=== PATIENT | male | born 1955 | race Caucasian/White ===

== ENCOUNTER → 2017-04-18 | Outpatient (CLI) | payer BC | END | disposition home or self-care (01) | LOC: GMAM 15:14 | PROVIDERS: ATTEND Family Medicine | DX: R94.5 Abnormal results of liver function studies (principal); Z12.5 Encounter for screening for malignant neoplasm of prostate; E29.9 Testicular dysfunction, unspecified ==

== ENCOUNTER → 2018-05-22 | Outpatient (CLI) | payer BC | LOC: GMAM 11:11 | PROVIDERS: ATTEND Family Medicine | DX: R94.6 Abnormal results of thyroid function studies (principal); E29.9 Testicular dysfunction, unspecified; Z12.5 Encounter for screening for malignant neoplasm of prostate ==

== ENCOUNTER → 2018-05-23 | Outpatient (CLI) | payer BC | LOC: LAB.O 11:49 | PROVIDERS: ATTEND Family Medicine | DX: L08.9 Local infection of the skin and subcutaneous tissue, unspecified (principal) ==

== ENCOUNTER → 2018-09-08 | Outpatient (CLI) | payer BC, OTHER ==
--- NOTE | 2018-09-08 10:39 | RAD ---
Single frontal view pelvis Indication: R10.2 Comparison: None. Impression: Likely subacute fractures involving the right parasymphyseal pubic bone and right inferior pubic ramus noted with mild callus formation inferiorly. The fractures appear united. A right pubic root fracture is likely present as well. CT can better evaluate as clinically indicated. Lumbosacral fusion construct noted with suspected loosening of the bilateral S1 screws and left L5 screw with surrounding lucency. Mild to moderate bilateral hip osteoarthritis. Osteopenia. If this is a new finding, DEXA scan recommended as well as evaluation for possible osteoporosis treatment. Electronically signed by: Carmelo Hernandez MD 09/08/2018 10:36 AM CDT
== END ==
LOC: RAD 08:07
PROVIDERS: ATTEND Orthopaedic Surgery
DX: R10.2 Pelvic and perineal pain (principal); M85.88 Other specified disorders of bone density and structure, other site; M16.0 Bilateral primary osteoarthritis of hip; Z98.1 Arthrodesis status

== ENCOUNTER → 2018-10-02 | Outpatient (CLI) | payer BC ==
--- NOTE | 2018-10-02 19:47 | US ---
US THYROID CLINICAL STATEMENT: THYROID NODULE. No palpable mass, no prior thyroid surgery or therapy. COMPARISON: None TECHNIQUE: Transcutaneous scanning, grayscale and Doppler modes. FINDINGS: Size right thyroid lobe: 4.4 x 1.5 x 1.3 cm Size left thyroid lobe: 4.3 x 2.0 x 2.1 cm Size isthmus: 0.24 cm Estimated total number of nodules greater than or equal to 1 cm: 1. Bilateral lobes and isthmus are heterogeneous. Nodule 1: Size: 2.9 x 2.0 x 1.8 cm Location: Left Upper Composition: solid or almost completely solid: 2 points. Small cystlike regions. Minimal vascularity. Echogenicity: hypoechoic: 2 points. More hypoechoic centrally and more hyperechoic peripherally. Shape: wider than tall: 0 points Margins: smooth: 0 points Echogenic foci: none: 0 points ACR Total Points: 4; ACR TI-RADS risk category: TR4 - moderately suspicious nodule. The soft tissue around the thyroid gland show no evidence of distinct cyst or dominant solid mass. No parenchymal edema or large calcifications. No overlying skin changes. No abnormal vascularity. IMPRESSION: 1. Nodule 1: ACR TI-RADS 2017 Category TR4. Recommend: Ultrasound-guided fine needle aspiration. Recommendations based upon [facility] Best Practice recommendations and ACR TI-RADS 2017 guidelines. Please see below*. 2. The soft tissue around the thyroid gland is unremarkable. *ACR TI-RADS 2017 Recommendations: TR1: No FNA or follow up TR2: No FNA or follow up TR3: FNA if >/= 2.5 cm, follow up if 1.5 - 2.4 cm in 1, 3, and 5 years TR4: FNA if >/= 1.5 cm, follow up if 1.0 - 1.4 cm in 1, 2, 3, and 5 years TR5: FNA if >/= 1.0 cm, follow up if 0.5 - 0.9 cm every year for 5 years ACR TI-RADS recommends that no more than two nodules with the highest ACR TI-RADS total point should be biopsied and no more than four nodules should be followed. These recommendations do not apply to patients with increased risk for thyroid cancer or patients with symptomatic thyroid disease. Electronically signed by: Olivier Juarez MD 10/02/2018 7:44 PM CDT
== END ==
LOC: US 10:00
PROVIDERS: ATTEND Family Medicine
DX: E04.1 Nontoxic single thyroid nodule (principal)

== ENCOUNTER → 2018-10-09 | Outpatient (CLI) | payer BC ==
--- NOTE | 2018-10-09 15:48 | RAD ---
EXAM DESCRIPTION: Pelvis CLINICAL HISTORY: 63 years Male, S22.41XD COMPARISON: Radiograph of the pelvis dated 09/08/2018. TECHNIQUE: AP radiograph of the pelvis was performed. FINDINGS: Fractures of the right superior and inferior pubic rami appear unchanged with no significant interval healing. Bilateral sacroiliac joints appear normal. Degenerative changes are identified in the bilateral hip joints. Posterior spinal fixation hardware is noted in the lower lumbar spine. IMPRESSION: Unchanged appearance of the fractures of the right superior and inferior pubic rami. Electronically signed by: An Espinoza MD 10/09/2018 3:45 PM CDT
== END ==
LOC: RAD 07:41
PROVIDERS: ATTEND Orthopaedic Surgery
DX: S32.9XXD Fracture of unspecified parts of lumbosacral spine and pelvis, subsequent encounter for fracture with routine healing (principal); S22.41XD Multiple fractures of ribs, right side, subsequent encounter for fracture with routine healing

== ENCOUNTER → 2018-10-24 | Outpatient (CLI) | payer BC ==
--- NOTE | 2018-10-26 13:56 | RAD ---
EXAM: Pelvis CLINICAL HISTORY: S32.9XXD COMPARISON STUDY: Pelvis from October 09, 2018 TECHNICAL: AP pelvis FINDINGS: A mildly comminuted fracture extends through the right superior pubic ramus into the pubic symphysis. There is subluxation of the pubic symphysis that measures 14 mm. A nondisplaced fracture extends through the right inferior pubic ramus. Interval development of periosteal bone is noted. Both hips are in alignment. There are postoperative changes of the lower lumbar spine. IMPRESSION: 1. Healing right pelvic fractures. 2. 14 mm subluxation of the pubic symphysis. Electronically signed by: Froy Acevedo MD 10/26/2018 1:54 PM CDT
== END ==
LOC: RAD 07:37
PROVIDERS: ATTEND Orthopaedic Surgery
DX: S32.9XXD Fracture of unspecified parts of lumbosacral spine and pelvis, subsequent encounter for fracture with routine healing (principal); S33.4XXD Traumatic rupture of symphysis pubis, subsequent encounter

== ENCOUNTER 2018-11-17 22:27 | Inpatient (IN) | payer BC ==
[2018-11-17] MEDS ORDERED: SODIUM CHLORIDE 0.9% 1000ML 1,000 ML IVS ONE (22:51)
[2018-11-17] MEDS ORDERED: MORPHINE SULFATE INJ 10 MG/ML VIAL IV ONE (22:51)
[2018-11-17] MEDS ORDERED: ONDANSETRON INJ 4 MG/2 ML VIAL IV ONE (22:51)
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
--- NOTE | 2018-11-17 23:07 | RAD ---
EXAM DESCRIPTION: Chest,2 Views CLINICAL HISTORY: 63 years Male cough, SOB COMPARISON: January 20, 2015. TECHNIQUE: Two view study of the chest was performed. FINDINGS: Cardiac size is within normal limits. Central vessels are mildly increased. Elevation right hemidiaphragm. Increasing airspace opacity right perihilar and infrahilar regions. Left infrahilar airspace opacity unchanged. No effusions bilaterally. No pneumothorax. IMPRESSION: Increasing right perihilar and infrahilar infiltrate and atelectatic change. Mild central congestion. Remaining findings unchanged. Electronically signed by: Marisol Martin MD 11/17/2018 11:05 PM CDT
[2018-11-17] MEDS ORDERED: cefTRIAXone SODIUM 1 GM in SODIUM CHL 0.9% 50ML MIN-BAG+ 50 ML IVPB ONE (23:19)
[2018-11-17] MEDS ORDERED: SODIUM CHL 0.9% 50ML MIN-BAG+ 50 ML IVPB ONE (23:26)
[2018-11-17] MEDS ORDERED: cefTRIAXone SODIUM 1 GM VIAL ONE (23:26)
[2018-11-17] MEDS ORDERED: IPRATROPIUM/ALBUTEROL 3 ML VIAL NEB ONE (23:42)
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
[2018-11-18] MEDS ORDERED: ONDANSETRON INJ 4 MG/2 ML VIAL IV PRN (00:26)
[2018-11-18] MEDS ORDERED: MORPHINE SULFATE INJ 10 MG/ML VIAL IV PRN (00:26)
[2018-11-18] MEDS ORDERED: SODIUM CHLORIDE 0.9% (FLUSH) 10 ML SYG IV PRN (00:26)
[2018-11-18] MEDS ORDERED: MAGNESIUM HYDROXIDE 30 ML UD PO PRN (00:26)
[2018-11-18] MEDS ORDERED: ACETAMINOPHEN 325 MG TAB PO PRN (00:26)
[2018-11-18] MEDS ORDERED: ENOXAPARIN SODIUM 40 MG/0.4 ML SYG SUBCU SCH (00:30)
[2018-11-18] MEDS ORDERED: KETOROLAC TROMETHAMINE INJ 30 MG/ML VIAL IV ONE (00:35)
[2018-11-18] MEDS ORDERED: SODIUM CHLORIDE 0.9% 250ML 250 ML ONE ×2 (00:56→19:28)
[2018-11-18] MEDS ORDERED: AZITHROMYCIN IV 500 MG VIAL IVPB ONE ×2 (00:57→19:28)
[2018-11-18] MEDS: IV SET AND CAP CHANGE INJ INJ SCH (01:03)
[2018-11-18] MEDS: AZITHROMYCIN IV 500 MG in SODIUM CHLORIDE 0.9% 250ML 250 ML IVPB SCH (01:03)
[2018-11-18] MEDS: KCL 20MEQ/0.45% NS 1,000 ML IVS PRN ×2 (03:14→13:00)
[2018-11-18] MEDS: ALBUTEROL SULFATE 2.5 MG/3 ML VIAL NEB PRN (03:44)
[2018-11-18] MEDS ORDERED: BENZONATATE PERLES 100 MG CAP PO ONE (04:30)
[2018-11-18] MEDS ORDERED: cefTRIAXone SODIUM 1 GM VIAL ONE (07:00)
[2018-11-18] MEDS ORDERED: CELECOXIB 100 MG CAP ONE (07:00)
[2018-11-18] MEDS ORDERED: SODIUM CHL 0.9% 50ML MIN-BAG+ 50 ML IVPB ONE (07:00)
[2018-11-18] MEDS: IPRATROPIUM/ALBUTEROL 3 ML VIAL NEB SCH ×4 (07:10→20:25)
[2018-11-18] MEDS: TAMSULOSIN 0.4 MG CAP PO SCH (09:21)
[2018-11-18] MEDS: cefTRIAXone SODIUM 1 GM in SODIUM CHL 0.9% 50ML MIN-BAG+ 50 ML IVPB SCH (09:21)
[2018-11-18] MEDS: CELECOXIB 100 MG CAP PO SCH (09:21)
[2018-11-18] MEDS: guaiFENesin W/CODEINE LIQ 10 ML UD PO PRN ×2 (11:45→20:15)
[2018-11-18] MEDS: guaiFENesin ER TAB 600 MG TAB PO SCH ×2 (13:30→20:14)
[2018-11-18] MEDS: SODIUM CHLORIDE 0.9% (FLUSH) 10 ML SYG IV SCH ×2 (14:35→20:14)
[2018-11-18] MEDS: ENOXAPARIN SODIUM 40 MG/0.4 ML SYG SUBCU SCH (20:14)
[2018-11-18] MEDS: HYDROcodone 5MG/APAP 325MG 1 EA TAB PO PRN (21:23)
[2018-11-19] MEDS: AZITHROMYCIN IV 500 MG in SODIUM CHLORIDE 0.9% 250ML 250 ML IVPB SCH (00:48)
[2018-11-19] MEDS: guaiFENesin W/CODEINE LIQ 10 ML UD PO PRN ×4 (00:58→21:00)
[2018-11-19] MEDS ORDERED: TEMAZEPAM 15 MG CAP PO ONE (01:42)
[2018-11-19] MEDS: TAMSULOSIN 0.4 MG CAP PO SCH ×2 (02:38→08:55)
--- NOTE | 2018-11-19 07:10 | RAD ---
EXAM: XR Chest, 2 Views CLINICAL HISTORY: The patient is 63 years old and is Male; Pneumonia TECHNIQUE: Frontal and lateral views of the chest. COMPARISON: Chest radiograph from 11/17/2018 FINDINGS: LUNGS: Persistent elevation of the right hemidiaphragm. Mild right basilar opacity again noted, suggesting atelectasis or pneumonia. This is not significantly changed. The left lung is clear. PLEURAL SPACE: Unremarkable. No pneumothorax. HEART: Stable mild enlargement of the cardiac silhouette. MEDIASTINUM: Unremarkable. BONES/JOINTS: No acute osseous findings. IMPRESSION: Mild right basilar atelectasis or pneumonia. Findings are not significantly changed. Electronically signed by: Ngozi Maier MD 11/19/2018 7:06 AM CDT
[2018-11-19] MEDS: HYDROcodone 5MG/APAP 325MG 1 EA TAB PO PRN ×3 (07:24→20:59)
[2018-11-19] MEDS ORDERED: SODIUM CHL 0.9% 50ML MIN-BAG+ 50 ML IVPB ONE (08:14)
[2018-11-19] MEDS ORDERED: cefTRIAXone SODIUM 1 GM VIAL ONE (08:14)
[2018-11-19] MEDS: IPRATROPIUM/ALBUTEROL 3 ML VIAL NEB SCH ×4 (08:30→20:32)
[2018-11-19] MEDS: CELECOXIB 100 MG CAP PO SCH (08:54)
[2018-11-19] MEDS: guaiFENesin ER TAB 600 MG TAB PO SCH ×2 (08:55→20:59)
[2018-11-19] MEDS: cefTRIAXone SODIUM 1 GM in SODIUM CHL 0.9% 50ML MIN-BAG+ 50 ML IVPB SCH (08:55)
[2018-11-19] MEDS: SODIUM CHLORIDE 0.9% (FLUSH) 10 ML SYG IV SCH ×2 (09:00→20:59)
[2018-11-19] MEDS: levoFLOXacin 750MG IV 750 MG in PREMIX BAG 1 BAG IVPB SCH (10:24)
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
[2018-11-19] MEDS ORDERED: SODIUM CHLORIDE 0.65% NASAL SPRAY 45 ML BTTL BNAS PRN (13:22)
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
[2018-11-19] MEDS: ENOXAPARIN SODIUM 40 MG/0.4 ML SYG SUBCU SCH (20:58)
[2018-11-19] MEDS: TEMAZEPAM 15 MG CAP PO PRN (21:00)
[2018-11-20] MEDS: ALBUTEROL SULFATE 2.5 MG/3 ML VIAL NEB PRN (02:13)
[2018-11-20] MEDS: guaiFENesin W/CODEINE LIQ 10 ML UD PO PRN ×3 (03:54→22:52)
[2018-11-20] MEDS: IPRATROPIUM/ALBUTEROL 3 ML VIAL NEB SCH ×4 (07:05→20:15)
[2018-11-20] MEDS: CELECOXIB 100 MG CAP PO SCH (08:24)
[2018-11-20] MEDS: TAMSULOSIN 0.4 MG CAP PO SCH (08:24)
[2018-11-20] MEDS: guaiFENesin ER TAB 600 MG TAB PO SCH ×2 (08:24→20:52)
[2018-11-20] MEDS: levoFLOXacin 750MG IV 750 MG in PREMIX BAG 1 BAG IVPB SCH (09:49)
[2018-11-20] MEDS: SODIUM CHLORIDE 0.9% (FLUSH) 10 ML SYG IV SCH ×2 (09:50→20:53)
[2018-11-20] MEDS ORDERED: PEG-ELECTROLYTE 4,000 ML BTTL PO ONE (11:31)
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
[2018-11-20] MEDS: ENOXAPARIN SODIUM 40 MG/0.4 ML SYG SUBCU SCH (20:52)
[2018-11-20] MEDS: TEMAZEPAM 15 MG CAP PO PRN (22:52)
[2018-11-21] MEDS: IV SET AND CAP CHANGE INJ INJ SCH (00:05)
--- NOTE | 2018-11-21 06:22 | RAD ---
EXAM: XR Chest, 2 Views CLINICAL HISTORY: The patient is 63 years old and is Male; rt sided pneumonia TECHNIQUE: Frontal and lateral views of the chest. COMPARISON: Chest radiograph from 11/19/2018 FINDINGS: LUNGS: Persistent elevation of the right hemidiaphragm. Minimal right basilar opacity again noted, presumably representing atelectasis. The left lung is clear. PLEURAL SPACE: Unremarkable. No pneumothorax. HEART: No significant enlargement of the cardiac silhouette. MEDIASTINUM: Unremarkable. BONES/JOINTS: No acute osseous findings. IMPRESSION: Elevated right hemidiaphragm with minimal right basilar atelectasis. The appearance is not significantly changed. Underlying pneumonia is difficult to completely exclude on the right. Electronically signed by: Ngozi Maier MD 11/21/2018 6:20 AM CDT
[2018-11-21] MEDS: CELECOXIB 100 MG CAP PO SCH (08:27)
[2018-11-21] MEDS: guaiFENesin ER TAB 600 MG TAB PO SCH ×2 (08:28→20:35)
[2018-11-21] MEDS: TAMSULOSIN 0.4 MG CAP PO SCH (08:29)
[2018-11-21] MEDS: SODIUM CHLORIDE 0.9% (FLUSH) 10 ML SYG IV SCH ×2 (08:32→20:36)
[2018-11-21] MEDS: IPRATROPIUM/ALBUTEROL 3 ML VIAL NEB SCH ×4 (08:55→20:40)
[2018-11-21] MEDS ORDERED: CHLORPHENIRAMINE W/HYDROCODONE 5 ML UD PO ONE (09:52)
[2018-11-21] MEDS: levoFLOXacin 750MG IV 750 MG in PREMIX BAG 1 BAG IVPB SCH (10:15)
--- NOTE | 2018-11-21 13:19 | PN ---
SUPERVISING PHYSICIAN: Elian Angel MD DATE: 11/21/18 SUBJECTIVE: The patient states he is still coughing quite a bit. It is productive. It still is a little bit yellow in color. Other than that, he is feeling okay, ambulating in the an. OBJECTIVE: VITAL SIGNS: Blood pressure 139/88. Heart rate 97. Respiratory rate 15. Temperature 98.7. Oxygen saturation 93%. GENERAL: Mr. Mills is a 63-year-old male patient in no active distress currently. NEUROLOGIC: Alert and oriented. LUNGS: There are a little bit of coarse sounds in the bases, otherwise no wheezing. CARDIOVASCULAR: Regular rate and rhythm. Normal S1, S2. ABDOMEN: Soft. Positive bowel sounds. GENITOURINARY: Deferred. EXTREMITIES: Lower extremities with no edema. LABORATORY: Hemoglobin 17.3, hematocrit 51.9 post therapeutic phlebotomy. ASSESSMENT: 1. Right sided pneumonia status post blunt chest wall trauma, which is recurrent. 2. Hypoxemia secondary to #1. 3. Polycythemia. 4. Constipation. PLAN: The patient was changed to Levaquin yesterday. We will continue this for now. I am going to give him a dose of Tussionex to see if that helps his cough any better. His hematocrit is still above 50, so I am going to do another therapeutic phlebotomy today. I will recheck his hemoglobin tomorrow and reevaluate him for possible discharge tomorrow if he continues to improve. He is having good results with the GoLYTELY for his constipation. #[id number] MTDD
[2018-11-21] MEDS: guaiFENesin W/CODEINE LIQ 10 ML UD PO PRN ×2 (17:48→22:00)
[2018-11-21] MEDS: ENOXAPARIN SODIUM 40 MG/0.4 ML SYG SUBCU SCH (20:35)
[2018-11-21] MEDS: TEMAZEPAM 15 MG CAP PO PRN (22:01)
[2018-11-22] MEDS: IPRATROPIUM/ALBUTEROL 3 ML VIAL NEB SCH ×4 (08:02→20:05)
[2018-11-22] MEDS: guaiFENesin ER TAB 600 MG TAB PO SCH ×2 (09:06→21:06)
[2018-11-22] MEDS: TAMSULOSIN 0.4 MG CAP PO SCH (09:06)
[2018-11-22] MEDS: CELECOXIB 100 MG CAP PO SCH (09:06)
[2018-11-22] MEDS: SODIUM CHLORIDE 0.9% (FLUSH) 10 ML SYG IV SCH ×2 (09:07→21:08)
[2018-11-22] MEDS: guaiFENesin W/CODEINE LIQ 10 ML UD PO PRN ×2 (09:10→21:15)
--- NOTE | 2018-11-22 09:56 | PN ---
SUPERVISING PHYSICIAN: Scotty Lou MD DATE: 11/22/18 SUBJECTIVE: The patient states he slept in a chair last night to keep him from coughing so much. Other than that, his cough seems a little bit better. He still has a productive cough with yellowish-white sputum at this time. OBJECTIVE: VITAL SIGNS: Blood pressure 131/84. Heart rate 92. Respiratory rate 20. Temperature 98.1. Oxygen saturation 96%. GENERAL: Mr. Mills is a 63-year-old male patient in no active distress. NEUROLOGIC: Alert and oriented. LUNGS: Clear to auscultation bilaterally. . CARDIOVASCULAR: Regular rate and rhythm. Normal S1, S2. ABDOMEN: Soft, obese. Positive bowel sounds. EXTREMITIES: Lower extremities with no edema. 2+ pulses, capillary refill less than 2 seconds. LABORATORY: Hemoglobin 16.7, hematocrit 50.6 after blood removed yesterday with therapeutic phlebotomy. ASSESSMENT: 1. Right-sided pneumonia status post blunt chest wall trauma which is recurrent but clinically improving. 2. Hypoxemia secondary to #1, resolved. 3. Polycythemia improved status post 2 treatments of therapeutic phlebotomy. 4. Constipation improved after GoLYTELY. PLAN: The patient clinically is improved as well as normal white count, being afebrile and constipation clearing. His hematocrit is improved after therapeutic phlebotomy x2. I will keep him one more day with scheduled nebulizers as well as IV antibiotic. Discussed with the patient that he will go home tomorrow with p.o. antibiotic and nebulizers at home. He agrees with that plan of care and will plan to discharge at that time. #[id number] MTDD
[2018-11-22] MEDS: levoFLOXacin 750MG IV 750 MG in PREMIX BAG 1 BAG IVPB SCH (10:45)
[2018-11-22] MEDS: ENOXAPARIN SODIUM 40 MG/0.4 ML SYG SUBCU SCH (21:06)
[2018-11-22] MEDS: TEMAZEPAM 15 MG CAP PO PRN (21:15)
[2018-11-23] MEDS: IPRATROPIUM/ALBUTEROL 3 ML VIAL NEB SCH (08:11)
[2018-11-23] MEDS: guaiFENesin ER TAB 600 MG TAB PO SCH (08:27)
[2018-11-23] MEDS: CELECOXIB 100 MG CAP PO SCH (08:27)
[2018-11-23] MEDS: TAMSULOSIN 0.4 MG CAP PO SCH (08:27)
[2018-11-23] MEDS: SODIUM CHLORIDE 0.9% (FLUSH) 10 ML SYG IV SCH (08:28)
[2018-11-23] MEDS: levoFLOXacin 750MG IV 750 MG in PREMIX BAG 1 BAG IVPB SCH (08:29)
[2018-11-23 10:14] VITALS: BP 155/75; TEMP 97.5; O2SAT 97
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
== END 2018-11-23 09:55 | disposition home or self-care (01) | DRG 195 ==
LOC: ER 22:27 → MS 11-18 00:12 → OBSVTOIN 11-18 00:12
PROVIDERS: ADMIT Nurse Practitioner; ATTEND Nurse Practitioner
PROC: B32T1ZZ Computerized Tomography (CT Scan) of Left Pulmonary Artery using Low Osmolar Contrast (ICD-10-PCS; principal; 2018-11-19)
PROC: B3201ZZ Computerized Tomography (CT Scan) of Thoracic Aorta using Low Osmolar Contrast (ICD-10-PCS; 2018-11-19)
PROC: B32S1ZZ Computerized Tomography (CT Scan) of Right Pulmonary Artery using Low Osmolar Contrast (ICD-10-PCS; 2018-11-19)
PROC: 059Y3ZZ Drainage of Upper Vein, Percutaneous Approach (ICD-10-PCS; 2018-11-20)
PROC: 059Y3ZZ Drainage of Upper Vein, Percutaneous Approach (ICD-10-PCS; 2018-11-21)
DX: J18.9 Pneumonia, unspecified organism (principal); R09.02 Hypoxemia; E86.0 Dehydration; D75.1 Secondary polycythemia; K59.00 Constipation, unspecified; S22.41XS Multiple fractures of ribs, right side, sequela; W55.2 Contact with cow; E66.9 Obesity, unspecified; Z96.652 Presence of left artificial knee joint; Z98.1 Arthrodesis status; Z87.891 Personal history of nicotine dependence; Z79.899 Other long term (current) drug therapy; Z68.35 Body mass index [BMI] 35.0-35.9, adult

== ENCOUNTER → 2019-01-07 | Outpatient (CLI) | payer BC | LOC: LAB.O 14:17 | PROVIDERS: ATTEND Family Medicine | DX: D45 Polycythemia vera (principal) ==

== ENCOUNTER → 2019-01-21 | Outpatient (CLI) | payer BC ==
--- NOTE | 2019-01-21 21:05 | RAD ---
EXAM: XR Chest, 2 Views CLINICAL HISTORY: ACUTE UPPER RESPIRATORY INFECTION, UNSPECIFIED TECHNIQUE: Frontal and lateral views of the chest. COMPARISON: 11/21/2018. FINDINGS: Limitations: None. Lungs: Stable scarring in the right lung base and right diaphragmatic elevation. Pleural space: Unremarkable. No pneumothorax. Heart: Unremarkable. No cardiomegaly. Mediastinum: Unremarkable. Bones/joints: Unremarkable. IMPRESSION: Stable chronic changes right lower lung. Electronically signed by: Dali Bates MD 01/21/2019 9:04 PM CDT
== END ==
LOC: GMATM 20:19
PROVIDERS: ATTEND Nurse Practitioner Family
DX: J06.9 Acute upper respiratory infection, unspecified (principal)

== ENCOUNTER → 2019-04-06 | Outpatient (CLI) | payer BC | LOC: GMAM 16:55 | PROVIDERS: ATTEND Family Medicine | DX: R94.6 Abnormal results of thyroid function studies (principal); I10 Essential (primary) hypertension; E29.9 Testicular dysfunction, unspecified; Z12.5 Encounter for screening for malignant neoplasm of prostate ==

== ENCOUNTER 2019-04-16 18:07 | Inpatient (IN) | payer BC ==
--- NOTE | 2019-04-16 18:08 | HP ---
SUPERVISING PHYSICIAN: Corin De Santiago MD CHIEF COMPLAINT: Worsening shortness of breath with productive cough. HISTORY OF PRESENT ILLNESS: Mr. Mills is a 54-year-old male patient of Dr. Barth. He had been seen in the office two days previously for upper respiratory infection and concerns for developing pneumonia. He was started on antibiotic coverage with Levaquin at that time, but called Dr. Cid's office earlier today reporting that he was significantly worse. The patient was referred for direct admission for initiation of treatment for developing community acquired pneumonia having failed to respond to outpatient treatment plan. The patient was admitted in stable condition. PAST MEDICAL HISTORY: 1. Polycythemia. 2. Thyroid nodules followed by Dr. Jacobsen. 3. History of pelvic fracture and pneumothorax on the right side via blunt chest trauma resulting in multiple episodes of pneumonia. PAST SURGICAL HISTORY: 1. Left knee replacement. 2. Ganglion cyst removal, left hand. 3. Low back surgery with fusion and cage placement. HOME MEDICATIONS: Please see the updated and verified by nurses list of medications in the electronic medical record. ALLERGIES: NO KNOWN DRUG ALLERGIES. FAMILY HISTORY: Father at age 49 secondary to unknown cancer. Mother at age 84 secondary to stroke. He has one brother who has atrial fibrillation. He has a sister that is healthy. He has two children, one due to a traumatic event and the other one is healthy. SOCIAL HISTORY: He resides in [place]. He has a girlfriend. He denies smoking, but has utilized smokeless tobacco in the past, but quit at age 33. He notes he drinks alcohol in the form of wine on a typical daily basis, one to two glasses. He denies any illicit drug use. REVIEW OF SYSTEMS: CONSTITUTIONAL: Positive for general malaise, fevers. HEENT: Negative for headaches, sore throats, earaches, vision changes. Positive for nasal congestion. RESPIRATORY: Positive for shortness of breath with productive cough as noted in history of present illness. CARDIOVASCULAR: Negative for chest pain, palpitations or syncopal episodes. GASTROINTESTINAL: Negative for nausea, vomiting, diarrhea, constipation or abdominal pain. GENITOURINARY: Negative for dysuria, hematuria, polyuria. MUSCULOSKELETAL: Negative for joint swelling, arthralgias. Positive for chronic back pain and the previous back surgeries. NEUROLOGIC: Negative for headache, syncopal episodes, ataxia. HEMATOLOGIC: Positive for polycythemia requiring therapeutic vitamins. Denies any unexplained bleeding or bruising. SKIN: Denies any unexplained lesions or rashes. PHYSICAL EXAMINATION: VITAL SIGNS: Temperature on admission was 98.6, pulse 85, blood pressure 135/92, respirations 16, saturation 92% on room air at rest. GENERAL: The patient appears to be in mild distress secondary to shortness of breath with pursed lip breathing. He is alert. HEENT: Tympanic membranes clear bilaterally. Oropharynx is pink, moist without any lesions. NECK: Supple, nontender with full range of motion. No jugular venous distention noted. RESPIRATORY: Lung sounds with obvious rhonchi and decreased sounds bilaterally in the apices. No notable wheezing. CARDIOVASCULAR: Regular rate and rhythm without any appreciable murmurs, gallops, or rubs. ABDOMEN: Soft, nontender. Positive bowel sounds. EXTREMITIES: There is no cyanosis, clubbing or edema. NEUROLOGIC: The patient is alert and oriented times three. Cranial nerves II- XII are grossly intact. SKIN: [place], warm and dry. LABORATORY: CBC showed white count 6,300, hemoglobin 16.6, hematocrit 50.4, platelet count 205,000. Differential showed early left shift. Chemistries showed normal electrolytes with BUN 14, creatinine 1. Lactic acid 1.2. Liver functions all within normal limits. Urinalysis showed trace of leukocyte esterase, otherwise within normal limits. MICROBIOLOGY: Blood cultures pending. Sputum culture pending. RADIOLOGY: Chest x-ray per radiologic interpretation showed some scarring and atelectasis in the right middle lobe and lower lobes, no pneumothorax. ASSESSMENT: 1. Right sided community acquired pneumonia, having failed to respond to outpatient treatment plan on Levaquin. 2. Polycythemia complicating #1. 3. Thyroid nodules, followed by Dr. Jacobsen. PLAN: Mr. Mills is going to be directly admitted for initiation of pneumonia treatment with Levaquin parenterally. He will be on aggressive pulmonary hygiene with chest percussive therapy, DuoNebs, incentive spirometry. We will repeat labs in the morning. He will be DVT prophylaxis per protocol with Lovenox. I anticipate his length of stay to be two to three days. Until the patient can transition to outpatient management with oral antibiotics, we will continue to monitor and treat as needed. [facility][id number] [facility]
[2019-04-16] MEDS ORDERED: ONDANSETRON INJ 4 MG/2 ML VIAL IV PRN (18:52)
[2019-04-16] MEDS ORDERED: ACETAMINOPHEN 325 MG TAB PO PRN (18:52)
[2019-04-16] MEDS ORDERED: ALBUTEROL SULFATE 2.5 MG/3 ML VIAL NEB PRN (18:52)
--- NOTE | 2019-04-16 19:43 | RAD ---
EXAM: XR Chest, 2 Views CLINICAL HISTORY: Pneumonia TECHNIQUE: Frontal and lateral views of the chest. COMPARISON: 01/21/2019. FINDINGS: Limitations: None. Lungs: Stable right diaphragmatic eventration. Stable scarring and/or atelectasis in the right middle and lower lobes. Pleural space: Unremarkable. No pneumothorax. Heart: Unremarkable. No cardiomegaly. Mediastinum: Unremarkable. Bones/joints: Unremarkable. IMPRESSION: Stable abnormalities as above. Electronically signed by: Dali Bates MD 04/16/2019 7:41 PM CDT
[2019-04-16] MEDS: IPRATROPIUM/ALBUTEROL 3 ML VIAL INH SCH (19:58)
[2019-04-16] MEDS: levoFLOXacin 750MG IV 750 MG in PREMIX BAG 1 BAG IVPB SCH (20:03)
[2019-04-16] MEDS: IV SET AND CAP CHANGE INJ INJ SCH (20:03)
[2019-04-16] MEDS: SODIUM CHLORIDE 0.9% (FLUSH) 10 ML SYG IV PRN (20:03)
[2019-04-16] MEDS: guaiFENesin ER TAB 600 MG TAB PO SCH (20:58)
[2019-04-16] MEDS: DICLOFENAC 35 MG PO SCH (21:01)
[2019-04-17] MEDS: SODIUM CHLORIDE 0.9% (FLUSH) 10 ML SYG IV PRN (05:42)
--- NOTE | 2019-04-17 06:26 | RAD ---
EXAM: XR Chest, 2 Views CLINICAL HISTORY: Pneumonia TECHNIQUE: Frontal and lateral views of the chest. COMPARISON: 04/16/2019. FINDINGS: Limitations: None. Lungs: Stable mild atelectasis right lung base. Stable right diaphragmatic eventration. Pleural space: Unremarkable. No pneumothorax. Heart: Unremarkable. No cardiomegaly. Mediastinum: Unremarkable. Bones/joints: Unremarkable. IMPRESSION: Stable abnormalities as above. Electronically signed by: Dali Bates MD 04/17/2019 6:25 AM CDT
[2019-04-17] MEDS ORDERED: PANTOPRAZOLE SODIUM IV 40 MG VIAL IV SCH (06:30)
[2019-04-17] MEDS: POLYETHYLENE GLYCOL 3350 17 GM PCKT PO SCH (08:16)
[2019-04-17] MEDS: guaiFENesin ER TAB 600 MG TAB PO SCH ×2 (08:16→20:19)
[2019-04-17] MEDS: IPRATROPIUM/ALBUTEROL 3 ML VIAL INH SCH ×4 (08:32→19:39)
[2019-04-17] MEDS: DICLOFENAC 35 MG PO SCH ×3 (09:55→20:18)
[2019-04-17] MEDS ORDERED: methylPREDNISolone SODIUM SUC 125 MG/2 ML VIAL IV ONE (10:22)
[2019-04-17] MEDS ORDERED: TEMAZEPAM 15 MG CAP PO PRN (10:22)
[2019-04-17] MEDS ORDERED: methylPREDNISolone SODIUM SUC 40 MG/ML VIAL ONE (10:29)
--- NOTE | 2019-04-17 10:40 | PN ---
SUPERVISING PHYSICIAN: Corin De Santiago MD DATE: 04/17/19 SUBJECTIVE: The patient is sitting up in bed. He is coughing quite a bit. His shortness of breath is improved, but he still continues to have that with exertion. He denies chest pain, nausea or vomiting. He also says he is having a little bit of difficulty sleeping as well as these hard coughing spells. OBJECTIVE: VITAL SIGNS: Temperature 97.7. Heart rate 82. Blood pressure 132/76. Respiratory rate 20. O2 saturation 94% on room air. RESPIRATORY: Scattered expiratory wheezes throughout all lung grover, somewhat diminished at the bases. He does have a few scattered rhonchi as well. CARDIAC: Regular rate and rhythm. GASTROINTESTINAL: Abdomen is soft, nondistended, nontender. Bowel sounds are positive. EXTREMITIES: No cyanosis, clubbing or edema. NEUROLOGIC: Awake, alert and oriented times three. LABORATORY: WBCs 5.7, hemoglobin 16.1, hematocrit 48.9. No shift on his differential. Electrolytes are within normal limits. Chest x-ray shows stable abnormalities with mild atelectasis to the right lung base. All other labs and films have been reviewed via the EMR. ASSESSMENT: 1. Right sided community acquired pneumonia, having failed to respond to outpatient treatment plan on Levaquin. 2. Polycythemia complicating #1. 3. Thyroid nodules, followed by Dr. Jacobsen. PLAN: We will continue present supportive care including his Levaquin. His labs are fairly stable, so I will hold off on those in the morning. I have added some IV steroids and we will taper his dose. I have also given him some Restoril for sleep. Hopefully we can transition his steroids to oral medications and then he can be discharged in the next 24 to 48 hours. Otherwise, we will continue to monitor the patient closely and follow as needed. [facility][id number] [facility]
[2019-04-17] MEDS: methylPREDNISolone SODIUM SUC 125 MG/2 ML VIAL IV SCH ×2 (17:52→23:55)
[2019-04-17] MEDS: levoFLOXacin 750MG IV 750 MG in PREMIX BAG 1 BAG IVPB SCH (18:06)
[2019-04-17] MEDS ORDERED: PANTOPRAZOLE SODIUM TAB 40 MG PO ONE (19:25)
[2019-04-17] MEDS: TAMSULOSIN 0.4 MG CAP PO SCH (20:20)
[2019-04-17] MEDS: TEMAZEPAM 15 MG CAP PO PRN (21:22)
[2019-04-17] MEDS: CHLORPHENIRAMINE W/HYDROCODONE 5 ML UD PO PRN (22:15)
[2019-04-18] MEDS: BENZOCAINE-MENTH LOZ (CEPACOL) 1 EA LOZ MT PRN ×5 (02:07→22:14)
[2019-04-18] MEDS: methylPREDNISolone SODIUM SUC 125 MG/2 ML VIAL IV SCH (05:36)
[2019-04-18] MEDS: PANTOPRAZOLE SODIUM TAB 40 MG PO SCH (05:56)
[2019-04-18] MEDS: POLYETHYLENE GLYCOL 3350 17 GM PCKT PO SCH (08:17)
[2019-04-18] MEDS: guaiFENesin ER TAB 600 MG TAB PO SCH ×2 (08:17→20:28)
[2019-04-18] MEDS: DICLOFENAC 35 MG PO SCH ×3 (08:19→20:28)
[2019-04-18] MEDS: IPRATROPIUM/ALBUTEROL 3 ML VIAL INH SCH ×4 (08:40→20:20)
[2019-04-18] MEDS: CHLORPHENIRAMINE W/HYDROCODONE 5 ML UD PO PRN (11:08)
[2019-04-18] MEDS: methylPREDNISolone SODIUM SUC 40 MG/ML VIAL IV SCH ×2 (11:52→18:07)
--- NOTE | 2019-04-18 15:03 | PN ---
DATE: 04/18/19 SUPERVISING PHYSICIAN: Rashaad De Santiago M.D. SUBJECTIVE: The patient is up walking in his room. He is visibly short of breath but he does feel like he has improved since yesterday. He is tachypneic and has to speak in short phrases. Otherwise denies chest pain, nausea or vomiting. He did have a cough last night but was given Tussionex that has helped. OBJECTIVE: VITAL SIGNS: Temperature 97, heart rate 105, blood pressure 147/79, respiratory rate 20, O2 sat 94%. RESPIRATORY: Diminished breath sounds throughout. He has a few scattered expiratory wheezes but improved since yesterday. He is tachypneic and has to speak in short phrases due to his dyspnea. CARDIAC: Regular rate and rhythm. At times he is slightly tachycardic, especially with exertion. GASTROINTESTINAL: Abdomen is soft, nondistended, non-tender. Bowel sounds are positive. NEUROLOGIC: He is awake, alert and oriented times three. LABORATORY: CBC is unremarkable as well as his CMP. Sputum culture is pending. Preliminary blood cultures show no growth after 24 hours. All other labs and films have been reviewed via the EMR. ASSESSMENT: 1. Right sided community acquired pneumonia, having failed to respond to outpatient treatment plan on Levaquin. 2. Polycythemia complicating #1. 3. Thyroid nodules, followed by Dr. Jacobsen. PLAN: We will continue present supportive care. I will not order any lab or chest x-ray tomorrow as we will watch him clinically. I have decreased his Solu-Medrol very slowly and he will start on oral prednisone tomorrow. Hopefully tomorrow afternoon or Saturday morning he can be discharged as long as he improves. Tussionex was ordered for his cough. Will continue to monitor closely and follow as needed. #[id number] [facility]
[2019-04-18] MEDS: levoFLOXacin 750MG IV 750 MG in PREMIX BAG 1 BAG IVPB SCH (18:12)
[2019-04-18] MEDS: TAMSULOSIN 0.4 MG CAP PO SCH (20:28)
[2019-04-18] MEDS: TEMAZEPAM 15 MG CAP PO PRN (22:14)
[2019-04-19] MEDS: methylPREDNISolone SODIUM SUC 40 MG/ML VIAL IV SCH (00:13)
[2019-04-19] MEDS: PANTOPRAZOLE SODIUM TAB 40 MG PO SCH (05:53)
[2019-04-19] MEDS: IPRATROPIUM/ALBUTEROL 3 ML VIAL INH SCH ×4 (07:40→20:40)
[2019-04-19] MEDS: POLYETHYLENE GLYCOL 3350 17 GM PCKT PO SCH (08:01)
[2019-04-19] MEDS: predniSONE 20 MG TAB PO SCH (08:16)
[2019-04-19] MEDS: CHLORPHENIRAMINE W/HYDROCODONE 5 ML UD PO PRN (08:16)
[2019-04-19] MEDS: DICLOFENAC 35 MG PO SCH ×3 (08:16→20:57)
[2019-04-19] MEDS: guaiFENesin ER TAB 600 MG TAB PO SCH ×2 (08:16→20:57)
[2019-04-19] MEDS: PROMETHAZINE W/CODEINE SYR 5 ML UD PO PRN ×4 (10:59→23:02)
--- NOTE | 2019-04-19 13:46 | PN ---
DATE: 04/19/19 SUPERVISING PHYSICIAN: Rashaad De Santiago M.D. SUBJECTIVE: The patient is sitting up in his chair. He is short of breath and has a violent cough. He has had that off and on for the last couple of days. His right rib cage continues to hurt and is worsened with his coughing. Otherwise he denies any nausea or vomiting, diarrhea or constipation or chest pain. OBJECTIVE: VITAL SIGNS: Temperature 97.7, heart rate 101, blood pressure 147/85, respiratory rate is 22 to 24, O2 sat 94% on room air. RESPIRATORY: Diminished breath sounds at the bases, otherwise clear to auscultation. More diminished on the right than on the left. He is tachypneic. He does have to speak in short phrases and he has a very productive cough. CARDIAC: Regular rate and rhythm. GASTROINTESTINAL: Abdomen is soft, nondistended, non-tender. Bowel sounds are positive. NEUROLOGIC: He is awake, alert and oriented tomes three. LABORATORY: Preliminary blood cultures show no growth after 48 hours. Sputum culture is pending. All other labs and films have been reviewed via the EMR. ASSESSMENT: 1. Right sided community acquired pneumonia, having failed to respond to outpatient treatment plan on Levaquin. 2. Polycythemia complicating #1. 3. Thyroid nodules, followed by Dr. Jacobsen. 4. Productive cough most likely secondary to #1. PLAN: We will continue present supportive care. Today, he started his oral prednisone and hopefully he will be discharged tomorrow depending on how he tolerates his prednisone therapy. I changed his Tussionex to Promethazine with codeine cough syrup every 4 hours to help with his cough. It may be beneficial for him to go home on some codeine cough medicine as well as Levaquin and oral prednisone slow taper. I have encouraged him to walk in the hallways as much as he can. Will continue to monitor closely and follow as needed. [facility][id number] [facility]
[2019-04-19] MEDS: levoFLOXacin 750MG IV 750 MG in PREMIX BAG 1 BAG IVPB SCH (18:18)
[2019-04-19] MEDS: TAMSULOSIN 0.4 MG CAP PO SCH (20:57)
[2019-04-19] MEDS: IV SET AND CAP CHANGE INJ INJ SCH (20:57)
[2019-04-19] MEDS: BENZOCAINE-MENTH LOZ (CEPACOL) 1 EA LOZ MT PRN (20:58)
[2019-04-19] MEDS: CYCLOBENZAPRINE HCL 10 MG TAB PO PRN (21:14)
[2019-04-19] MEDS: TEMAZEPAM 15 MG CAP PO PRN (23:02)
[2019-04-20] MEDS: PANTOPRAZOLE SODIUM TAB 40 MG PO SCH (05:42)
[2019-04-20] MEDS: guaiFENesin ER TAB 600 MG TAB PO SCH ×2 (08:02→20:01)
[2019-04-20] MEDS: POLYETHYLENE GLYCOL 3350 17 GM PCKT PO SCH (08:02)
[2019-04-20] MEDS: PROMETHAZINE W/CODEINE SYR 5 ML UD PO PRN ×3 (08:02→19:55)
[2019-04-20] MEDS: DICLOFENAC 35 MG PO SCH ×3 (08:03→20:01)
[2019-04-20] MEDS: predniSONE 20 MG TAB PO SCH (08:03)
[2019-04-20] MEDS: IPRATROPIUM/ALBUTEROL 3 ML VIAL INH SCH ×4 (08:36→20:42)
[2019-04-20] MEDS: BENZOCAINE-MENTH LOZ (CEPACOL) 1 EA LOZ MT PRN (10:56)
[2019-04-20] MEDS: CYCLOBENZAPRINE HCL 10 MG TAB PO PRN ×2 (10:56→23:17)
--- NOTE | 2019-04-20 14:46 | PN ---
SUPERVISING PHYSICIAN: Elian Angel MD DATE: 04/20/19 SUBJECTIVE: The patient is still having a significant amount of shortness of breath with any exertional effort. He does maintain his O2 saturations, but does easily become short of breath. OBJECTIVE: VITAL SIGNS: Temperature 97.2. Pulse 105. Blood pressure 135/77. Respiratory rate 20. Saturation 96% on 2 liters nasal cannula. GENERAL: The patient is resting comfortably in the bedside chair. He is alert. CHEST: Lung sounds are somewhat improved since admission, but continue to be diminished bilaterally, more on the right than the left. He is still tachypneic with inability to speak in full sentences without pausing. He does have a continued productive cough. HEART: Regular rate and rhythm. ABDOMEN: Soft, nontender. Positive bowel sounds. EXTREMITIES: No edema. NEUROLOGIC: Alert and oriented times three. LABORATORY: No additional laboratory available for review. MICROBIOLOGY: Final sputum culture showed a normal annabel. Blood cultures remain negative after 3 days. ASSESSMENT: 1. Right sided community acquired pneumonia, having failed to respond to outpatient treatment plan on Levaquin. 2. Polycythemia complicating #1. 3. Thyroid nodules, followed by Dr. Jacobsen. 4. Productive cough most likely secondary to #1. PLAN: We will continue with oral prednisone today. We will anticipate hopefully being able to discharge tomorrow. He does remain on promethazine with codeine which is helping with his cough. We will continue to encourage walking. Until the patient can transition to outpatient management, we will continue to monitor and treat as needed. [facility][id number] [facility]
[2019-04-20] MEDS: levoFLOXacin 750MG IV 750 MG in PREMIX BAG 1 BAG IVPB SCH (18:13)
[2019-04-20] MEDS: MAGNESIUM HYDROXIDE 30 ML UD PO PRN (19:53)
[2019-04-20] MEDS: TAMSULOSIN 0.4 MG CAP PO SCH (20:01)
[2019-04-20] MEDS: TEMAZEPAM 15 MG CAP PO PRN (23:17)
[2019-04-21] MEDS: PANTOPRAZOLE SODIUM TAB 40 MG PO SCH (05:55)
[2019-04-21] MEDS: PROMETHAZINE W/CODEINE SYR 5 ML UD PO PRN ×4 (07:13→21:49)
--- NOTE | 2019-04-21 07:25 | RAD ---
EXAM DESCRIPTION: Chest,2 Views CLINICAL HISTORY: cpd exacerbation COMPARISON: April 17, 2019 FINDINGS: The cardiac silhouette is at the upper limits of normal size, stable. No airspace consolidation or pleural effusion. The central bronchovascular markings are indistinct. The lung volumes are within normal range. There is no pneumothorax or acute fracture. IMPRESSION: Stable borderline heart size with possible mild central pulmonary vascular congestion. Electronically signed by: Ricci Rod MD 04/21/2019 7:23 AM [facility]
[2019-04-21] MEDS: IPRATROPIUM/ALBUTEROL 3 ML VIAL INH SCH ×4 (07:32→20:16)
[2019-04-21] MEDS: POLYETHYLENE GLYCOL 3350 17 GM PCKT PO SCH (08:01)
[2019-04-21] MEDS: predniSONE 20 MG TAB PO SCH (08:01)
[2019-04-21] MEDS: guaiFENesin ER TAB 600 MG TAB PO SCH ×2 (08:01→20:09)
[2019-04-21] MEDS: DICLOFENAC 35 MG PO SCH ×3 (08:02→20:09)
[2019-04-21] MEDS ORDERED: BUDESONIDE NEBS 0.5 MG/2 ML INH NEB ONE (09:56)
[2019-04-21] MEDS: BUDESONIDE NEBS 0.5 MG/2 ML INH NEB SCH ×4 (10:00→20:17)
[2019-04-21] MEDS: BENZOCAINE-MENTH LOZ (CEPACOL) 1 EA LOZ MT PRN (11:24)
[2019-04-21] MEDS: MAGNESIUM HYDROXIDE 30 ML UD PO PRN (13:44)
[2019-04-21] MEDS: CYCLOBENZAPRINE HCL 10 MG TAB PO PRN ×2 (13:44→21:48)
[2019-04-21] MEDS: levoFLOXacin 750MG IV 750 MG in PREMIX BAG 1 BAG IVPB SCH (18:17)
[2019-04-21] MEDS: TAMSULOSIN 0.4 MG CAP PO SCH (20:09)
[2019-04-21] MEDS: TEMAZEPAM 15 MG CAP PO PRN (21:48)
[2019-04-22 05:36] VITALS: BP 125/81; TEMP 97.7
[2019-04-22] MEDS: PANTOPRAZOLE SODIUM TAB 40 MG PO SCH (06:07)
[2019-04-22] MEDS: IPRATROPIUM/ALBUTEROL 3 ML VIAL INH SCH (08:02)
[2019-04-22] MEDS: BUDESONIDE NEBS 0.5 MG/2 ML INH NEB SCH (08:02)
[2019-04-22] MEDS: predniSONE 20 MG TAB PO SCH (08:07)
[2019-04-22] MEDS: guaiFENesin ER TAB 600 MG TAB PO SCH (08:08)
[2019-04-22] MEDS: DICLOFENAC 35 MG PO SCH (08:09)
[2019-04-22] MEDS: POLYETHYLENE GLYCOL 3350 17 GM PCKT PO SCH (08:10)
--- NOTE | 2019-04-22 08:24 | PN ---
SUPERVISING PHYSICIAN: Elian Angel MD DATE: 04/21/19 SUBJECTIVE: The patient is still having some issues with shortness of breath and severe coughing. We discussed trying at least another 24 hours of treatment with Pulmicort in anticipation of discharging tomorrow. He is still not able to lay down and sleep. He does so in a chair but he has been afebrile and he is coughing up a large amount of mucus. OBJECTIVE: VITAL SIGNS: Temperature 97.6. Pulse 97. Blood pressure 125/80. Respiratory rate 19 to 22. Saturation 97% on room air at rest. GENERAL: The patient is resting in a chair, appears to be in no acute distress. . CHEST: Lung sounds still remain a little coarse throughout but have improved but diminished towards the bases.. HEART: Regular rate and rhythm. ABDOMEN: Soft, nontender. Positive bowel sounds. EXTREMITIES: No edema. NEUROLOGIC: Alert and oriented times three. LABORATORY: No additional laboratory today. . RADIOLOGY: Chest x-ray per radiology interpretation showed stable borderline heart size with possible mild central pulmonary vascular congestion. ASSESSMENT: 1. Right sided community acquired pneumonia, having failed to respond to outpatient treatment plan on Levaquin. 2. Polycythemia complicating #1. 3. Thyroid nodules, followed by Dr. Jacobsen. 4. Productive cough most likely secondary to #1. PLAN: He is on oral prednisone. I have started on an aggressive amount of Pulmicort today, 1 mg q.i.d. for 24 hours. He does have prescriptions already for promethazine and codeine and his antibiotics and a tapering dose of prednisone tomorrow with anticipation of discharge tomorrow. Until the patient can transition to outpatient management, we will continue to monitor and treat as needed. #[id number] [facility]
[2019-04-22 15:09] VITALS: O2SAT 99
--- NOTE | 2019-04-22 16:51 | DS ---
SUPERVISING PHYSICIAN: Elian Angel M.D. ADMISSION DIAGNOSIS: 1. Right sided acute community acquired pneumonia failing outpatient therapy. 2. Polycythemia. 3. Thyroid nodules followed by Dr. Jacobsen. DISCHARGE DIAGNOSIS: 1. Right sided acute community acquired pneumonia failing outpatient therapy. 2. Polycythemia. 3. Thyroid nodules followed by Dr. Jacobsen. HOSPITAL COURSE: This is a 54 year-old male patient of Dr. Barth who was seen in his primary care physician's office for upper respiratory infection, however, despite outpatient therapy the patient worsened. He was admitted and placed on antibiotic therapy. He also had a degree of wheezing. He does not have any history of chronic obstructive pulmonary disease or asthma on his record. Likely he had a degree of not only pneumonia but bronchitis as well. Throughout his admission he was placed on steroids as well as nebulizers and pulmonary toileting. He progressed well and today on the day of discharge the patient is in stable condition. Medications have already been sent to the pharmacy, which include a titrating dose of prednisone, Levaquin and Promethazine with codeine for a cough syrup. He will need a followup with his primary care physician in 7 days. Activity is as tolerated. I would recommend that he may get a spirometry as an outpatient once he is feeling better so he can get an accurate representation of what his lung function is. #[id number] [facility]
[2019-04-23] MEDS ORDERED: TESTOSTERONE ENANTHATE 200 MG IJ SCH (09:00)
== END 2019-04-22 11:00 | disposition home or self-care (01) | DRG 195 ==
LOC: MS 18:07
PROVIDERS: ADMIT Nurse Practitioner Family; ATTEND Nurse Practitioner
DX: J18.9 Pneumonia, unspecified organism (principal); D75.1 Secondary polycythemia; E04.1 Nontoxic single thyroid nodule; Z96.652 Presence of left artificial knee joint; Z98.1 Arthrodesis status; Z87.891 Personal history of nicotine dependence

== ENCOUNTER → 2019-05-11 | Outpatient (CLI) | payer BC | LOC: GMAM 14:40 | PROVIDERS: ATTEND Family Medicine | DX: R94.5 Abnormal results of liver function studies (principal); E29.9 Testicular dysfunction, unspecified ==

== ENCOUNTER → 2019-07-10 | Outpatient (CLI) | payer BC ==
--- NOTE | 2019-07-13 10:49 | US ---
EXAM DESCRIPTION: Extremity,Lower [place] Arteries: Ultrasound. CLINICAL HISTORY: UNSPECIFIED ATHEROSCLEROSIS OF [place] ART OF EXT COMPARISON: Duplex ultrasound of the bilateral carotid arteries on this visit. TECHNIQUE: Doppler evaluation of the bilateral lower extremity arterial flow waveforms and velocities. FINDINGS: Arterial waveforms in the right lower extremity are all multiphasic. Arterial waveforms in the left lower extremity are all multiphasic. Comments: Velocities are unremarkable and symmetric bilaterally. IMPRESSION: No Doppler evidence of significant atherosclerotic occlusive disease in the bilateral lower extremity arterial systems. Electronically signed by: Olivier Juarez MD 07/13/2019 10:48 AM [facility]
--- NOTE | 2019-07-13 10:58 | US ---
EXAM DESCRIPTION: Carotid Duplex: ULTRASOUND. CLINICAL HISTORY: 64 years Male OCCLUSION AND STENOSIS OF [place] CAROTID ART COMPARISON: Bilateral arterial lower extremity Doppler ultrasound on the same visit. TECHNIQUE: Transcutaneous scanning utilizing gillis-scale and Doppler modes to evaluate the bilateral carotid systems and vertebral arteries. Percentage of diameter of stenosis or no stenosis recorded will be based upon NASCET criteria. FINDINGS: Peak systolic/end diastolic (CM-Sec) CCA Right 83/25 Left 90/16. ICA Right proximal 73/22, distal 64/30. Left proximal 83/18, mid 60/20.. Vertebral Right 45/12 Left 26/0. ECA (PS Only) Right 91 left 83. ICA/CCA peak systolic ratio: Right 0.9 Left 0.9 ICA/CCA end diastolic ratio: Right 0.9 Left 1.1 Vertebral arteries: antegrade flow Comments: Bilateral atherosclerotic changes in the common carotid bifurcations and proximal ICAs. Spectral broadening in the proximal and mid right ICA and the distal left ICA. Color turbulent flow in the proximal left ICA. Less than 25% area and diameter stenosis in the right common carotid bulb. 33% area stenosis in the left proximal ICA with 28% diameter stenosis. IMPRESSION: 1. Doppler evaluation of the bilateral carotid systems and vertebral arteries shows no hemodynamically significant stenoses. 2. Minimal amount of plaque seen in the carotid arteries bilaterally. Bilateral vertebral arteries showed antegrade-cephalad flow. Electronically signed by: Olivier Juarez MD 07/13/2019 10:56 AM [employer]
== END ==
LOC: US 11:27
PROVIDERS: ATTEND Family Medicine
DX: I65.23 Occlusion and stenosis of bilateral carotid arteries (principal); M79.669 Pain in unspecified lower leg

== ENCOUNTER → 2019-08-28 | Outpatient (CLI) | payer BC | DX: J98.6 Disorders of diaphragm (principal); S22.49XS Multiple fractures of ribs, unspecified side, sequela; R06.09 Other forms of dyspnea ==

== ENCOUNTER → 2020-07-28 | Outpatient (CLI) | payer BC | LOC: GMAM 10:33 | PROVIDERS: ATTEND Family Medicine | DX: N40.0 Benign prostatic hyperplasia without lower urinary tract symptoms (principal); E29.9 Testicular dysfunction, unspecified ==